=== PATIENT | female | born 2000 | race Caucasian/White ===

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

== ENCOUNTER → 2018-07-04 | Outpatient (CLI) | payer OTHER ==
[~2018-07-04] MED LIST changes: +AMOXICILLIN500 M2 PO; +DIFLUCAN150 MG PO; +FLONASE ALLERG9.9 ML NAS; +Motrin,Rufen800 MG PO
== END | disposition home or self-care (01) ==
LOC: MRI 12:43
DX: S93.492A Sprain of other ligament of left ankle, initial encounter (principal); M25.372 Other instability, left ankle; X58.XXXA Exposure to other specified factors, initial encounter; Y93.89 Activity, other specified; Y92.89 Other specified places as the place of occurrence of the external cause; Y99.8 Other external cause status

== ENCOUNTER 2019-08-20 22:24 | Emergency (ER) | payer OTHER ==
[~2019-08-20] VITALS: Wt 99.8 kg
[2019-08-20 22:44] VITALS: BP 120/81
== END 2019-08-21 00:19 | disposition home or self-care (01) ==
LOC: ED 22:24
DX: F41.9 Anxiety disorder, unspecified (principal); J45.909 Unspecified asthma, uncomplicated; Z79.899 Other long term (current) drug therapy

== ENCOUNTER 2019-08-26 02:09 | Emergency (ER) | payer OTHER ==
[~2019-08-26] VITALS: Ht 165.1 cm; Wt 99.8 kg
[2019-08-26 02:16] VITALS: BP 130/86
== END 2019-08-26 02:58 | disposition home or self-care (01) ==
LOC: ED 02:09
DX: R07.89 Other chest pain (principal); F41.0 Panic disorder [episodic paroxysmal anxiety]; F32.9 Major depressive disorder, single episode, unspecified; J45.909 Unspecified asthma, uncomplicated; Z79.899 Other long term (current) drug therapy; Z79.2 Long term (current) use of antibiotics

== ENCOUNTER 2020-04-11 14:27 | Emergency (ER) | payer OTHER ==
[~2020-04-11] VITALS: Wt 108.9 kg
[2020-04-11 14:46] VITALS: BP 135/86
[2020-04-11 16:32] LABS: BASO % 0.2 % (0.0-1.0); EOS # 0.2 10*3/uL (0.0-0.4); EOS % 1.7 % (1.0-4.0); HEMATOCRIT 42.1 % (37.0-47.0); LYMPH # 3.6 10*3/uL (1.3-4.4); LYMPH % 28.7 % (27.0-41.0); MEAN CELL VOLUME 86.8 fl (81.0-99.0); MEAN CORPUSCULAR HGB 27.8 pg (27.0-31.0); MEAN CORPUSCULAR HGB CONC 32.1 g/dl (33.0-37.0); MEAN PLATELET VOLUME 9.7 fl (9.6-12.3); MONO # 0.8 10*3/uL (0.1-1.0); MONO % 6.2 % (3.0-9.0); NEUT # 7.7 10*3/uL (2.3-7.9); NEUT % 62.7 % (47.0-73.0); PLATELET COUNT AUTOMATED 365 10*3/uL (130-400); RED BLOOD COUNT 4.85 10*6/uL (4.10-5.10); RED CELL DISTRI WIDTH 11.9 % (0-14.5); WHITE BLOOD COUNT 12.4 10*3/uL (4.8-10.8)
[2020-04-11 16:48] LABS: BILIRUBIN Negative (Negative); BLOOD Negative (Negative); CLARITY Clear (Clear); COLOR Yellow (Yellow); GLUCOSE Negative (Negative); KETONE Trace (Negative); LEUKO ESTERASE Trace (Negative); NITRITE Negative (Negative); SPECIFIC GRAVITY 1.025 (1.001-1.030); UROBILINOGEN 0.2 E.U./dl (0.0-1.0)
[2020-04-11 16:50] LABS: ALBUMIN 2.9 gm/dl (3.1-4.5); ALKALINE PHOSPHATASE 87 U/L (45-117); BUN 9 mg/dl (7-24); CHLORIDE 106 mmol/L (98-107); CREATININE 0.72 mg/dL (0.55-1.02); LIPASE 58 U/L (73-393); POTASSIUM 3.6 mmol/L (3.5-5.1); SGOT/AST 18 IU/L (3-35); SGPT/ALT 23 U/L (12-78); SODIUM 138 mmol/L (136-145); TOTAL PROTEIN 7.4 gm/dL (6.4-8.2)
[2020-04-11 16:53] LABS: B-hCG (QUALITATIVE) NEGATIVE (NEGATIVE)
[2020-04-11 17:04] LABS: BACTERIA TRACE
== END 2020-04-11 20:17 | disposition home or self-care (01) ==
LOC: ED 14:27
PROVIDERS: Physician Assistant
DX: R10.30 Lower abdominal pain, unspecified (principal); Z20.828 Contact with and (suspected) exposure to other viral communicable diseases; R19.7 Diarrhea, unspecified; R11.10 Vomiting, unspecified

== ENCOUNTER 2021-07-27 00:22 | Emergency (ER) | payer OTHER ==
[~2021-07-27] VITALS: Ht 172.7 cm; Wt 108.9 kg
[2021-07-27 00:32] VITALS: BP 136/92
[2021-07-27] MEDS ORDERED: ARMOUR THYROID30 M1 PO (00:35)
[2021-07-27] MEDS ORDERED: CELEXA40 MG PO (00:35)
[2021-07-27] MEDS ORDERED: ONDANSETRON4 MG SL (00:36)
[2021-07-27] MEDS ORDERED: RIZATRIPTAN10 MG PO (00:36)
[2021-07-27] MEDS ORDERED: TOPAMAX50 MG PO (00:37)
[2021-07-27] MEDS ORDERED: HYDROXYZINE HCL25 MG PO (00:37)
[2021-07-27] MEDS ORDERED: NORETHIN-EE 1.1 EACH PO (00:38)
[2021-07-27] MEDS ORDERED: PREDNISONE50 MG PO (00:53)
[2021-07-27] MEDS ORDERED: NAPROSYN500 MG PO (00:53)
== END 2021-07-27 01:01 | disposition home or self-care (01) ==
LOC: ED 00:22
DX: R07.89 Other chest pain (principal); Z79.899 Other long term (current) drug therapy

== ENCOUNTER 2021-09-13 20:23 | Emergency (ER) | payer OTHER ==
[~2021-09-13] VITALS: Ht 160 cm; Wt 117.9 kg
[~2021-09-13 20:23] MED LIST changes: +ARMOUR THYROID30 M1 PO; +CELEXA40 MG PO; +HYDROXYZINE HCL25 MG PO; +NAPROSYN500 MG PO; +NORETHIN-EE 1.1 EACH PO; +ONDANSETRON4 MG SL; +PREDNISONE50 MG PO; +RIZATRIPTAN10 MG PO; +TOPAMAX50 MG PO
[2021-09-13 20:31] VITALS: BP 128/92
[2021-09-13] MEDS ORDERED: CITALOPRAM40 MG PO (20:46)
[2021-09-13] MEDS ORDERED: HYDROXYZINE HCL25 MG PO (20:47)
[2021-09-13] MEDS ORDERED: NORETHIND-ETH1 EAC1 PO (20:47)
[2021-09-13] MEDS ORDERED: FLOVENT HFA12 GM INH (20:48)
[2021-09-13] MEDS ORDERED: ONDANSETRON HYDR4 MG PO (20:48)
[2021-09-13] MEDS ORDERED: RIZATRIPTAN10 MG PO (20:48)
[2021-09-13] MEDS ORDERED: ARMOUR THYROID30 M1 PO (20:49)
[2021-09-13 20:59] LABS: BASO % 0.3 % (0.0-1.0); EOS # 0.2 10*3/uL (0.0-0.4); EOS % 2.9 % (1.0-4.0); HEMATOCRIT 43.9 % (37.0-47.0); LYMPH # 2.7 10*3/uL (1.3-4.4); LYMPH % 46.7 % (27.0-41.0); MEAN CELL VOLUME 84.3 fl (81.0-99.0); MEAN CORPUSCULAR HGB CONC 33.3 g/dl (33.0-37.0); MONO # 0.4 10*3/uL (0.1-1.0); NEUT # 2.6 10*3/uL (2.3-7.9); NEUT % 43.9 % (47.0-73.0); PLATELET COUNT AUTOMATED 368 10*3/uL (130-400); RED BLOOD COUNT 5.21 10*6/uL (4.10-5.10); WHITE BLOOD COUNT 5.8 10*3/uL (4.8-10.8)
[2021-09-13 21:14] LABS: ALKALINE PHOSPHATASE 96 U/L (45-117); BUN 6 mg/dl (7-24); CHLORIDE 105 mmol/L (98-107); CREATININE 0.68 mg/dL (0.55-1.02); POTASSIUM 3.5 mmol/L (3.5-5.1); SGOT/AST 84 IU/L (3-35); SGPT/ALT 76 U/L (12-78); SODIUM 137 mmol/L (136-145); TOTAL PROTEIN 7.7 gm/dL (6.4-8.2)
== END 2021-09-13 21:20 | disposition home or self-care (01) ==
LOC: ED 20:23
PROVIDERS: Internal Medicine
DX: U07.1 COVID-19 (principal); Z79.899 Other long term (current) drug therapy

== ENCOUNTER 2021-11-01 01:09 | Emergency (ER) | payer OTHER ==
[~2021-11-01] VITALS: Ht 160 cm; Wt 120.2 kg
[~2021-11-01 01:09] MED LIST changes: +CITALOPRAM40 MG PO; +FLOVENT HFA12 GM INH; +NORETHIND-ETH1 EAC1 PO; +ONDANSETRON HYDR4 MG PO
[2021-11-01 01:16] VITALS: BP 136/89
[2021-11-01 01:55] LABS: BILIRUBIN Negative (Negative); BLOOD Trace-Lysed (Negative); CLARITY Cloudy (Clear); COLOR Yellow (Yellow); GLUCOSE Negative (Negative); KETONE Negative (Negative); LEUKO ESTERASE 1+ (Negative); NITRITE Negative (Negative); PH 5.5 (4.5-8.0); SPECIFIC GRAVITY 1.025 (1.001-1.030)
[2021-11-01 01:55] LABS: BASO # 0.1 10*3/uL (0.0-0.1); BASO % 0.4 % (0.0-1.0); EOS # 0.2 10*3/uL (0.0-0.4); EOS % 1.2 % (1.0-4.0); HEMATOCRIT 40.4 % (37.0-47.0); LYMPH # 3.2 10*3/uL (1.3-4.4); LYMPH % 19.7 % (27.0-41.0); MEAN CELL VOLUME 86.3 fl (81.0-99.0); MEAN CORPUSCULAR HGB 28.4 pg (27.0-31.0); MEAN CORPUSCULAR HGB CONC 32.9 g/dl (33.0-37.0); MEAN PLATELET VOLUME 9.7 fl (9.6-12.3); MONO % 6.3 % (3.0-9.0); NEUT # 11.6 10*3/uL (2.3-7.9); PLATELET COUNT AUTOMATED 375 10*3/uL (130-400); RED BLOOD COUNT 4.68 10*6/uL (4.10-5.10); RED CELL DISTRI WIDTH 12.1 % (0-14.5); WHITE BLOOD COUNT 16.1 10*3/uL (4.8-10.8)
[2021-11-01 02:10] LABS: ALKALINE PHOSPHATASE 88 U/L (45-117); BUN 9 mg/dl (7-24); CHLORIDE 107 mmol/L (98-107); POTASSIUM 3.8 mmol/L (3.5-5.1); SGOT/AST 84 IU/L (3-35); SGPT/ALT 76 U/L (12-78); SODIUM 138 mmol/L (136-145); TOTAL PROTEIN 7.4 gm/dL (6.4-8.2)
[2021-11-01 02:13] LABS: EPITHELIAL CELLS 41-50
[2021-11-01 02:14] LABS: BACTERIA 1+; WBC 16-20 wbc/hpf (0-5)
[2021-11-01] MEDS ORDERED: CIPRO500 MG PO (02:39)
== END 2021-11-01 02:48 | disposition home or self-care (01) ==
LOC: ED 01:09
PROVIDERS: Internal Medicine
DX: N39.0 Urinary tract infection, site not specified (principal); Z20.822 Contact with and (suspected) exposure to COVID-19; D72.829 Elevated white blood cell count, unspecified; Z79.899 Other long term (current) drug therapy

== ENCOUNTER 2022-04-23 14:46 | Emergency (ER) | payer OTHER ==
[~2022-04-23] VITALS: Wt 108.9 kg
[~2022-04-23 14:46] MED LIST changes: +CIPRO500 MG PO
[2022-04-23 15:03] VITALS: BP 129/91
== END 2022-04-23 17:54 | disposition left against medical advice (07) ==
LOC: ED 14:46
DX: Z53.21 Procedure and treatment not carried out due to patient leaving prior to being seen by health care provider (principal)

== ENCOUNTER 2022-05-14 20:00 | Emergency (ER) | payer OTHER ==
[2022-05-14 20:20] VITALS: BP 129/90
[2022-05-14] MEDS ORDERED: NAPROSYN500 MG PO (21:54)
== END 2022-05-14 22:14 | disposition home or self-care (01) ==
LOC: ED 20:00
DX: S83.92XA Sprain of unspecified site of left knee, initial encounter (principal); X58.XXXA Exposure to other specified factors, initial encounter; Y93.89 Activity, other specified; Y92.89 Other specified places as the place of occurrence of the external cause; Y99.0 Civilian activity done for income or pay

== ENCOUNTER 2022-07-16 12:56 | Emergency (ER) | payer OTHER ==
[~2022-07-16] VITALS: Ht 160 cm; Wt 117.9 kg
[2022-07-16 13:23] VITALS: BP 121/80
[2022-07-16] MEDS ORDERED: IBU800 M2 PO (13:52)
== END 2022-07-16 14:23 | disposition home or self-care (01) ==
LOC: ED 12:56
DX: S29.011A Strain of muscle and tendon of front wall of thorax, initial encounter (principal); J45.909 Unspecified asthma, uncomplicated; D64.9 Anemia, unspecified; G43.909 Migraine, unspecified, not intractable, without status migrainosus; G47.00 Insomnia, unspecified; X58.XXXA Exposure to other specified factors, initial encounter; Y93.89 Activity, other specified; Y92.89 Other specified places as the place of occurrence of the external cause; Y99.8 Other external cause status

== ENCOUNTER 2022-10-03 22:47 | Emergency (ER) | payer OTHER ==
[~2022-10-03] VITALS: Wt 119.7 kg
[~2022-10-03 22:47] MED LIST changes: +IBU800 M2 PO
[2022-10-03 22:59] VITALS: BP 126/91
[2022-10-04 00:07] LABS: BASO # 0.1 10*3/uL (0.0-0.1); BASO % 0.3 % (0.0-1.0); EOS # 0.3 10*3/uL (0.0-0.4); EOS % 1.9 % (1.0-4.0); HEMATOCRIT 41.3 % (37.0-47.0); LYMPH # 4.6 10*3/uL (1.3-4.4); LYMPH % 31.4 % (27.0-41.0); MEAN CELL VOLUME 86.4 fl (81.0-99.0); MEAN CORPUSCULAR HGB 28.9 pg (27.0-31.0); MEAN CORPUSCULAR HGB CONC 33.4 g/dl (33.0-37.0); MEAN PLATELET VOLUME 9.7 fl (9.6-12.3); MONO # 0.9 10*3/uL (0.1-1.0); MONO % 6.4 % (3.0-9.0); NEUT # 8.7 10*3/uL (2.3-7.9); NEUT % 59.7 % (47.0-73.0); PLATELET COUNT AUTOMATED 398 10*3/uL (130-400); RED BLOOD COUNT 4.78 10*6/uL (4.10-5.10); WHITE BLOOD COUNT 14.6 10*3/uL (4.8-10.8)
[2022-10-04 00:18] LABS: BILIRUBIN Negative (Negative); BLOOD Negative (Negative); CLARITY Clear (Clear); COLOR Yellow (Yellow); GLUCOSE Negative (Negative); KETONE Trace (Negative); LEUKO ESTERASE 1+ (Negative); NITRITE Negative (Negative); SPECIFIC GRAVITY >= 1.030 (1.001-1.030)
[2022-10-04 00:29] LABS: ALKALINE PHOSPHATASE 83 U/L (46-116); BUN 10 mg/dl (9-23); CHLORIDE 104 mmol/L (98-107); LIPASE 34 U/L (12-53); POTASSIUM 3.8 mmol/L (3.4-5.1); SGPT/ALT 71 U/L (10-49); TOTAL PROTEIN 6.9 gm/dL (6.0-8.0)
[2022-10-04 00:34] LABS: EPITHELIAL CELLS 31-40
[2022-10-04 00:36] LABS: BACTERIA 2+; WBC 21-30 wbc/hpf (0-5)
== END 2022-10-04 07:35 | disposition home or self-care (01) ==
LOC: ED 22:47
PROVIDERS: Emergency Medicine
DX: R10.31 Right lower quadrant pain (principal); R10.11 Right upper quadrant pain; R11.0 Nausea; R19.7 Diarrhea, unspecified; J45.909 Unspecified asthma, uncomplicated; D64.9 Anemia, unspecified; G43.909 Migraine, unspecified, not intractable, without status migrainosus

== ENCOUNTER → 2022-10-15 | Outpatient (CLI) | payer OTHER | END | disposition home or self-care (01) | LOC: NM 06:44 | PROVIDERS: ATTEND Nurse Practitioner | DX: R10.11 Right upper quadrant pain (principal) ==

== ENCOUNTER 2023-02-24 12:09 | Emergency (ER) | payer OTHER ==
[~2023-02-24 12:09] MED LIST changes: +COLACE100 MG PO; +HYDROCODONE-AC1 EAC1 PO; +ONDANSETRON HYDR4 M1 PO
== END 2023-02-24 14:54 | disposition left against medical advice (07) ==
LOC: ED 12:09
DX: H57.11 Ocular pain, right eye (principal); Z53.21 Procedure and treatment not carried out due to patient leaving prior to being seen by health care provider

== ENCOUNTER 2023-11-15 01:03 | Emergency (ER) | payer OTHER ==
[~2023-11-15] VITALS: Ht 162.5 cm; Wt 117.9 kg
[2023-11-15 01:22] VITALS: BP 117/81
[2023-11-15 02:30] LABS: BASO # 0.1 10*3/uL (0.0-0.1); BASO % 0.3 % (0.0-1.0); BILIRUBIN Negative (Negative); BLOOD Trace-Lysed (Negative); CLARITY Clear (Clear); COLOR Yellow (Yellow); EOS # 0.4 10*3/uL (0.0-0.4); EOS % 2.2 % (1.0-4.0); GLUCOSE Negative (Negative); HEMATOCRIT 42.8 % (37.0-47.0); KETONE Negative (Negative); LEUKO ESTERASE Negative (Negative); LYMPH # 4.8 10*3/uL (1.3-4.4); LYMPH % 29.7 % (27.0-41.0); MEAN CELL VOLUME 88.4 fl (81.0-99.0); MEAN CORPUSCULAR HGB 28.5 pg (27.0-31.0); MEAN CORPUSCULAR HGB CONC 32.2 g/dl (33.0-37.0); MEAN PLATELET VOLUME 9.6 fl (9.6-12.3); MONO % 5.9 % (3.0-9.0); NEUT # 9.8 10*3/uL (2.3-7.9); NEUT % 61.5 % (47.0-73.0); NITRITE Negative (Negative); PLATELET COUNT AUTOMATED 416 10*3/uL (130-400); RED BLOOD COUNT 4.84 10*6/uL (4.10-5.10); RED CELL DISTRI WIDTH 12.2 % (0-14.5); SPECIFIC GRAVITY 1.025 (1.001-1.030)
[2023-11-15 02:45] LABS: BACTERIA TRACE
[2023-11-15 02:50] LABS: BUN 7 mg/dl (9-23); CHLORIDE 103 mmol/L (98-107); LIPASE 33 U/L (12-53); POTASSIUM 3.9 mmol/L (3.4-5.1)
== END 2023-11-15 03:59 | disposition home or self-care (01) ==
LOC: ED 01:03
PROVIDERS: Emergency Medicine
DX: R10.2 Pelvic and perineal pain (principal); F41.9 Anxiety disorder, unspecified; J45.909 Unspecified asthma, uncomplicated; Z79.899 Other long term (current) drug therapy

== ENCOUNTER 2024-10-26 15:34 | Inpatient (IN) | payer OTHER ==
[~2024-10-26] VITALS: Ht 162.6 cm; Wt 134.0 kg
[2024-10-26 15:45] VITALS: BP 134/92
[2024-10-26 16:15] LABS: BASO # 0.1 10*3/uL (0.0-0.1); BASO % 0.4 % (0.0-1.0); EOS # 0.2 10*3/uL (0.0-0.4); EOS % 1.4 % (1.0-4.0); MEAN CELL VOLUME 86.4 fl (81.0-99.0); MEAN CORPUSCULAR HGB 28.3 pg (27.0-31.0); MEAN PLATELET VOLUME 9.9 fl (9.6-12.3); MONO # 0.8 10*3/uL (0.1-1.0); MONO % 6.2 % (3.0-9.0); NEUT # 7.9 10*3/uL (2.3-7.9); NEUT % 63.1 % (47.0-73.0); NUCLEATED RED BLOOD CELL 0.0 % (0.0-0.0); NUCLEATED RED BLOOD CELL 0.0 10*3/uL (0.0-0.0); PLATELET COUNT AUTOMATED 391 10*3/uL (130-400); RED CELL DISTRI WIDTH 12.1 % (0-14.5)
[2024-10-26 16:32] LABS: BILIRUBIN Negative (Negative); BLOOD Trace-Lysed (Negative); CLARITY Clear (Clear); COLOR Yellow (Yellow); KETONE Trace (Negative); LEUKO ESTERASE Trace (Negative); NITRITE Negative (Negative); PH 6.0 (4.5-8.0); SPECIFIC GRAVITY 1.025 (1.001-1.030); UROBILINOGEN 1.0 E.U./dl (0.0-1.0)
[2024-10-26 16:38] LABS: BUN 8 mg/dl (9-23); SGPT/ALT 53 U/L (5-49)
[2024-10-26 16:57] LABS: BACTERIA 4+; EPITHELIAL CELLS 16-20
[2024-10-26] MEDS ORDERED: fentaNYL CITRATE/PF 50 MCG/ML SYRINGE IV ONE (17:50)
[2024-10-26] MEDS ORDERED: SODIUM CHLORIDE 0.9% 1,000 ML IV ONE ×3 (18:37→20:55)
[2024-10-26 19:50] VITALS: BP 103/64
[2024-10-26 20:05] VITALS: BP 109/70
[2024-10-26] MEDS ORDERED: Ondansetron Hydrochloride 4 MG/2 ML VIAL IV ONE ×2 (20:05→21:05)
[2024-10-26] MEDS ORDERED: HYDROmorphONE Hydrochloride 0.5 MG/0.5 ML SYRINGE IV PRN (20:05)
[2024-10-26 20:20] VITALS: BP 113/71
[2024-10-26] MEDS ORDERED: HYDROmorphONE Hydrochloride 0.5 MG/0.5 ML SYRINGE ONE (20:28)
[2024-10-26 20:35] VITALS: BP 109/61
[2024-10-26 20:50] VITALS: BP 115/71; BP 122/76
[2024-10-26] MEDS ORDERED: BISACODYL 5 MG TAB PO PRN (20:50)
[2024-10-26] MEDS ORDERED: BISACODYL 10 MG SUPP R PRN (20:50)
[2024-10-26] MEDS ORDERED: Ondansetron Hydrochloride 4 MG/2 ML VIAL IV PRN (20:50)
[2024-10-26] MEDS ORDERED: SEVOFLURANE 250 ML BOT INH ONE (21:05)
[2024-10-26] MEDS ORDERED: SUGAMMADEX SODIUM 200 MG/2 ML VIAL IV ONE (21:05)
[2024-10-26] MEDS ORDERED: Dexamethasone Sodium Phospha 4 MG/ML VIAL IV ONE (21:05)
[2024-10-26] MEDS ORDERED: Midazolam Hydrochloride 2 MG/2 ML VIAL IV ONE (21:05)
[2024-10-26] MEDS ORDERED: Lidocaine Hydrochloride 5 ML VIAL IV ONE (21:05)
[2024-10-26] MEDS ORDERED: PROPOFOL 200 MG/20 ML VIAL IV ONE (21:05)
[2024-10-26] MEDS ORDERED: ROCURONIUM BROMIDE 50 MG/5 ML SYRINGE IV ONE (21:05)
[2024-10-26] MEDS ORDERED: LAMICTAL100 MG PO (21:20)
[2024-10-26] MEDS ORDERED: CITALOPRAM10 MG PO (21:21)
[2024-10-26] MEDS ORDERED: CITALOPRAM20 MG PO (21:24)
[2024-10-27] VITALS: BP 121/82
[2024-10-27] MEDS ORDERED: THYROID 30 MG TAB PO SCH (06:00)
[2024-10-27 06:38] LABS: BASO # 0.0 10*3/uL (0.0-0.1); BASO % 0.2 % (0.0-1.0); EOS # 0.0 10*3/uL (0.0-0.4); EOS % 0.1 % (1.0-4.0); MEAN CELL VOLUME 87.1 fl (81.0-99.0); MEAN CORPUSCULAR HGB 27.7 pg (27.0-31.0); MEAN PLATELET VOLUME 9.8 fl (9.6-12.3); MONO # 0.4 10*3/uL (0.1-1.0); MONO % 2.0 % (3.0-9.0); NEUT # 17.8 10*3/uL (2.3-7.9); NEUT % 89.9 % (47.0-73.0); NUCLEATED RED BLOOD CELL 0.0 % (0.0-0.0); NUCLEATED RED BLOOD CELL 0.0 10*3/uL (0.0-0.0); PLATELET COUNT AUTOMATED 371 10*3/uL (130-400); RED CELL DISTRI WIDTH 12.1 % (0-14.5)
[2024-10-27 07:34] LABS: BUN 7 mg/dl (9-23); FREE T4 1.20 ng/dl (0.89-1.76); LDL CHOLESTEROL 73 mg/dL (9-159); SGPT/ALT 47 U/L (5-49)
[2024-10-27 08:00] VITALS: BP 111/58
[2024-10-27] MEDS ORDERED: [UNRECOGNIZED DRUG - OTHER] PO SCH (10:00)
[2024-10-27] MEDS ORDERED: CITALOPRAM 20 MG TAB PO SCH (10:00)
[2024-10-27 12:00] VITALS: BP 102/58
[2024-10-27] MEDS ORDERED: HYDROCODONE-AC1 EAC1 PO (13:01)
[2024-10-27] MEDS ORDERED: SEPTDS PO (13:01)
[2024-10-27] MEDS ORDERED: LAMOTRIGINE 100 MG TAB PO SCH (22:00)
== END 2024-10-27 14:26 | disposition home or self-care (01) | DRG 234 ==
LOC: ED 15:34 → 4E 17:58 → EDHOLD 17:58 → 4E 21:13
PROVIDERS: Nurse Practitioner Family; ADMIT Internal Medicine; ATTEND Internal Medicine
PROC: 0DTJ4ZZ Resection of Appendix, Percutaneous Endoscopic Approach (ICD-10-PCS; principal; 2024-10-26)
DX: K35.30 Acute appendicitis with localized peritonitis, without perforation or gangrene (principal); E44.1 Mild protein-calorie malnutrition; Z68.43 Body mass index [BMI] 50.0-59.9, adult; E03.9 Hypothyroidism, unspecified; N30.01 Acute cystitis with hematuria; J45.909 Unspecified asthma, uncomplicated; D72.829 Elevated white blood cell count, unspecified; R74.01 Elevation of levels of liver transaminase levels; R82.71 Bacteriuria; E66.01 Morbid (severe) obesity due to excess calories; F33.42 Major depressive disorder, recurrent, in full remission; R73.9 Hyperglycemia, unspecified; F41.9 Anxiety disorder, unspecified; Z90.49 Acquired absence of other specified parts of digestive tract; Z79.899 Other long term (current) drug therapy; Z79.01 Long term (current) use of anticoagulants; Z79.2 Long term (current) use of antibiotics; Z83.3 Family history of diabetes mellitus; Z82.49 Family history of ischemic heart disease and other diseases of the circulatory system; Z86.16 Personal history of COVID-19; Z87.440 Personal history of urinary (tract) infections

== ENCOUNTER 2025-04-27 20:17 | Emergency (ER) | payer OTHER ==
[~2025-04-27] VITALS: Ht 162.5 cm; Wt 122.5 kg
[~2025-04-27 20:17] MED LIST changes: +CITALOPRAM10 MG PO; +CITALOPRAM20 MG PO; +LAMICTAL100 MG PO; +SEPTDS PO
[2025-04-27 20:27] VITALS: BP 119/61
== END 2025-04-27 21:06 | disposition home or self-care (01) ==
LOC: ED 20:17
DX: B34.9 Viral infection, unspecified (principal); R11.2 Nausea with vomiting, unspecified; M79.18 Myalgia, other site; J45.909 Unspecified asthma, uncomplicated; G43.909 Migraine, unspecified, not intractable, without status migrainosus; F31.9 Bipolar disorder, unspecified; G47.00 Insomnia, unspecified; Z90.49 Acquired absence of other specified parts of digestive tract